=== PATIENT | male | born 1970 | race Caucasian/White ===

== ENCOUNTER 2020-06-02 08:32 | Inpatient (IN) ==
--- NOTE | 2020-05-19 16:00 | PAT Medication Instructions ---
Medication Instructions Date of Service May 19, 2020 Home Medications loratadine [Claritin] 10 mg PO QAM naproxen 500 mg PO BID PRN ASK your surgeon for instructions Naproxen 500 mg PO BID PRN DO NOT take the morning of surgery loratadine [Claritin] 10 mg PO QAM Other Notes If you have any questions please call us at [phone] or [phone] or [phone] or [phone]
--- NOTE | 2020-05-20 12:34 | Anesthesiology Consultation ---
Date of Service May 20, 2020 Assessment & Plan (1) Encounter for pre-operative examination: COVID Status: As of 05/20 assessment, patient denies travel to endemic area, known exposure/sick contacts, or symptoms of COVID19. Patient instructed that they and their household members must follow strict social distancing guidelines, wear a mask in public and avoid travel for 14 days prior to surgery. Preoperative COVID19 testing to be completed prior to surgery per surgeon's a rrangements. Patient made aware to self-isolate as much as possible between COVID testing and surgery. Chart Review Chart Review: Acceptable Risk for Surgery (pending surgeon ordered PCP clearance) and Patient seen in Pre Admission Testing Teaching & Discussion Instructed NPO after midnight before surgery, except medications with 15 cc of water. Medication instructions provided according to the PAT guidelines. History Surgery Operation Date: 06/02/20 07:45 Proposed Procedures p L4-S1 Decompression and Fusion; Spinal Cord Monitoring - Allen Tejeda, Height/Weight Height: 6 ft 1 in Weight: 97.7 kg Allergies Allergy/AdvReac Type Severity Reaction Status Date / Time No Known Allergies Allergy Verified 05/14/20 10:45 Medications Home Medications Medication Instructions Recorded Confirmed Last Taken loratadine [Claritin] 10 mg PO QAM 05/14/20 05/14/20 Unknown naproxen 500 mg PO BID PRN 05/14/20 05/14/20 Unknown Past Medical History Medical History Osteoarthritis Seasonal allergies Spinal stenosis Exercise / Class Metabolic Activity II 4-5 Yardwork/Stairs/Walk up hill Past Family History Family History (Updated 05/14/20 @ 10:49 by Alicia Easley RN) Other No significant family history Past Surgical History Surgical History History of arthroscopy LEFT KNEE X 2 History of lumbar discectomy History of nasal septoplasty History of tooth extraction Past Anesthesia History No Hx of Anesthesia Complications and No Family Hx of Anesthesia Complications History of PONV No Hx of PONV and Hx of Motion Sickness (due to vertigo, if quick motion) Social History Smoking Status: Former smoker tobacco type: cigarettes Smoking cigarettes per day: "CASUAL SMOKER" Do You Dip or Chew Tobacco: No Hx Alcohol Use: No Hx Substance Use: No substance use type: does not use Review of Systems Pt denies any recent chest pain, shortness of breath, palpitations, cough, fever, URI, or uncontrolled acid reflux. Physical Exam Vital Signs BP: 146/106 -- pt was asked to monitor at home by PCP to r/o white coat HTN and he reports was usually normal at home (120s/80s), stopped monitoring a few months ago. Rpt manual cuff 10 mins later 140/100. P: 77bpm SPO2: 98% RA T: 97.9 F R: 16 ENMT Mouth: no dental restorations, no chipped teeth and no loose teeth Thyromental Distance: > or= 3.5 Finger Breadths Mallampati Class: II Neck normal visual inspection and + facial hair; neck extension not limited Respiratory normal respiratory effort Auscultation: lungs clear to auscultation bilaterally Cardiovascular Rate/Rhythm: regular rate and regular rhythm Heart Sounds: no murmur Extremities: no edema Testing Laboratory Results 05/20/20 12:21 05/20/20 12:21 PT 10.5 Seconds (9.0-12.0) 05/20/20 12:21 INR 1.0 (0.9-1.1) 05/20/20 12:21 APTT 28.8 Seconds (21.0-31.0) 05/20/20 12:21 Urine Color Yellow 05/20/20 12:21 Urine Appearance Clear (Clear) 05/20/20 12:21 Urine pH 7.5 (4.5-7.5) 05/20/20 12:21 Ur Specific Damon 1.022 (1.000-1.030) 05/20/20 12:21 Urine Protein Negative (Negative) 05/20/20 12:21 Urine Glucose (UA) Negative (Negative) 05/20/20 12:21 Urine Ketones Negative (Negative) 05/20/20 12:21 Urine Nitrite Negative (Negative) 05/20/20 12:21 Ur Leukocyte Esterase Negative (Negative) 05/20/20 12:21 Blood Type O Positive 05/20/20 12:21 Antibody Screen NEGATIVE 05/20/20 12:21 Electrocardiogram Date: 05/20/20 Findings: + NSR @ (69bpm) Chest X-Ray Date: 05/20/20 Findings: + NAD
[2020-05-20 13:11] LABS: Basophils # (auto) 0.05 K/uL (0-0.2); Basophils % (auto) 0.6 %; Eosinophils # (auto) 0.41 K/uL (0-0.5); Eosinophils % (auto) 5.1 %; Hematocrit (blood only) 46.7 % (42-52); Hemoglobin 15.8 g/dL (14.0-18.0); Immature Granulocytes # (auto) 0.03 K/uL (0.00-0.02); Immature Granulocytes % (auto) 0.4 %; Lymphocytes # (auto) 1.66 K/uL (1.2-3.4); Lymphocytes % (auto) 20.5 %; Mean Corpuscular Hemoglobin 30.5 pg (25-34); Mean Corpuscular Hgb Conc 33.8 g/dL (32-36); Mean Corpuscular Volume 90.2 fL (80-100); Mean Platelet Volume 10.9 fL (7.4-10.4); Monocytes # (auto) 0.92 K/uL (0.11-0.59); Monocytes % (auto) 11.4 %; Neutrophils # (auto) 5.03 K/uL (1.4-6.5); Platelet Count 212 K/uL (130-400); RDW Coefficient of Variation 12.6 % (11.5-14.5); RDW Standard Deviation 41.5 fL (36.4-46.3); Red Blood Count 5.18 M/uL (4.7-6.1)
[2020-05-20 13:23] LABS: Appearance Urine Clear (Clear); Bilirubin Urine Negative (Negative); Blood Urine Negative (Negative); Color Urine Yellow; Glucose Urine UA Negative (Negative); Ketones Urine Negative (Negative); Leukocyte Esterase Urine Negative (Negative); Nitrite Urine Negative (Negative); Partial Thromboplastin Time 28.8 Seconds (21.0-31.0); Protein Urine Negative (Negative); Prothrombin Time 10.5 Seconds (9.0-12.0); Specific Gravity Urine 1.022 (1.000-1.030); Urobilinogen Urine Negative (Negative); pH Urine 7.5 (4.5-7.5)
[2020-05-20 13:26] LABS: Calcium 9.3 mg/dl (8.5-10.1); Creatinine Clr Calc Pharmacy 113.5 ml/min; Est GFR (African American) 105.2; Est GFR (Non-African American) 90.8; Potassium 4.2 mmol/L (3.5-5.1)
--- NOTE | 2020-05-20 13:43 | XRay Report ---
TWO VIEW CHEST CLINICAL HISTORY: Preoperative examination. FINDINGS: PA and lateral chest radiographs are obtained. No prior studies are available for compariso n at the time of dictation. The cardiomediastinal silhouette is unremarkable. The lungs and pleural spaces are clear. There is no pneumothorax. The bony thorax appears intact. Mild degenerative change and scoliosis is noted in the thoracic spine. IMPRESSION: No active disease in the chest. ACT 112: Negative or not required by law. Electronically signed by: Ty Snider M.D. 05/20/2020 1:42 PM
--- NOTE | 2020-05-21 06:05 | Electrocardiogram Report ---
Test Reason : Blood Pressure : / mmHG Vent. Rate : 069 BPM Atrial Rate : 069 BPM P-R Int : 152 ms QRS Dur : 100 ms QT Int : 390 ms P-R-T Axes : 070 056 062 degrees QTc Int : 417 ms Normal sinus rhythm Normal ECG No previous ECGs available Confirmed by Elias Zhu ([id number]) on 05/21/2020 6:05:29 AM Referred By: Allen Tejeda Confirmed By:Elias Zhu
[~2020-06-02 08:32] MED LIST: ACETAMINOPHEN 500 MG TAB PO SCH; CeleBREX 200 MG CAP PO SCH; GABAPENTIN 900 MG DOSE PO SCH; LR 15ML/HR IV SCH; MIDAZOLAM HCL 1 MG/ML 2ML VIAL ONE; ceFAZolin 2000MG 2,000 MG/15 ML SYR IV SCH; fentaNYL citrate 100 MCG/2 ML VIAL ONE
--- NOTE | 2020-06-02 09:14 | History & Physical Bridge Note ---
Date of Service June 02, 2020 History & Physical Bridge Note I have examined the patient, reviewed the History & Physical and in the interval since the performance of the History & Physical I have noted the following changes of clinical significance: no changes noted
--- NOTE | 2020-06-02 09:14 | History & Physical Report ---
Date of Service June 02, 2020 Assessment & Plan (1) Neurogenic claudication due to lumbar spinal stenosis: Admission and Anticipated Discharge Date Admission Date: L4-S1 decompression fusion History of Present Illness Chief Complaint: Back and leg pain Primary Care Provider: Black Ramos This is a 50-year-old male who presents with chronic persistent back and leg pain. After failing a course of nonoperative care is here for surgical invention. Allergies Allergy/AdvReac Type Severity Reaction Status Date / Time No Known Allergies Allergy Verified 06/02/20 09:10 Home Medications Home Medications Medication Instructions Recorded Confirmed Type loratadine [Claritin] 10 mg PO QAM 05/14/20 06/02/20 History naproxen 500 mg PO BID PRN 05/14/20 06/02/20 History Past Med/Surg History Medical History Osteoarthritis Seasonal allergies Spinal stenosis Surgical History History of arthroscopy LEFT KNEE X 2 History of lumbar discectomy History of nasal septoplasty History of tooth extraction Family History (Updated 05/14/20 @ 10:49 by Alicia Easley RN) Other No significant family history Social History Smoking Status: Former smoker Cigarettes Per Day: "CASUAL SMOKER"; Second Hand Exposure: No; Do You Dip or Chew Tobacco: No; Tobacco Cessation Education Requested by Patient: No Hx Alcohol Use: No Hx Substance Use: No Preferred Language: Kazakh Hot Tamale Man Required: No Beliefs That Will Affect Care: None Current Living Situation: Spouse Feels Safe at Home: Yes Safety Concerns: Feels Safe At This Time Assistive Devices: None Physical Exam Physical Exam: Patient is alert and oriented neurologically intact Heart regular rate and rhythm Lungs clear to auscultation
[2020-06-02] MEDS ORDERED: BACITRACIN INJ 50,000 UNIT VIAL ONE (09:25)
[2020-06-02] MEDS ORDERED: BUPIVACAINE/EPINEPHRINE 0.25% 1:200,000 30 ML VIAL ONE (09:26)
[2020-06-02] MEDS ORDERED: ATROPINE SULFATE 0.1 MG/ML 10ML SYR IV PRN (09:43)
[2020-06-02] MEDS ORDERED: ONDANSETRON INJ 2 MG/ML 2 ML VIAL IV PRN ×2 (09:43→13:24)
[2020-06-02] MEDS ORDERED: PROMETHAZINE HCL 6.25 MG in SODIUM CHLORIDE 0.9% 50 ML IV PRN (09:43)
[2020-06-02] MEDS ORDERED: HYDROmorphone INJ 2 MG/ML SYR/VIAL IV PRN (09:43)
[2020-06-02] MEDS ORDERED: ePHEDrine sulfate 50 MG/ML AMP IV PRN (09:43)
[2020-06-02] MEDS ORDERED: HYDROmorphone INJ 2 MG/ML SYR/VIAL ONE (10:09)
[2020-06-02] MEDS ORDERED: NEOSTIGMINE METHYLSULFATE 1 MG/ML 10ML VIAL ONE (10:14)
[2020-06-02] MEDS ORDERED: PROPOFOL IV EMULSION 10 MG/ML 20 ML VIAL IV ONE (10:14)
[2020-06-02] MEDS ORDERED: GLYCOPYRROLATE 0.2 MG/ML VIAL ONE (10:14)
[2020-06-02] MEDS ORDERED: ONDANSETRON INJ 2 MG/ML 2 ML VIAL ONE (10:14)
[2020-06-02] MEDS ORDERED: LARYING-O-JET KIT (LTA) ONE (10:14)
[2020-06-02] MEDS ORDERED: DEXAMETHASONE SOD INJ 4 MG/ML VIAL ONE (10:14)
[2020-06-02] MEDS ORDERED: LIDOCAINE HCL 2% 2 ML VIAL/AMP(20MG/ML) INFIL ONE (10:14)
[2020-06-02] MEDS ORDERED: FLOSEAL HEMOSTATIC MATRIX 10ML TOP ONE (10:53)
[2020-06-02] MEDS ORDERED: ROCURONIUM BROMIDE 10 MG/ML 5 ML VIAL IV ONE (11:24)
--- NOTE | 2020-06-02 12:06 | Operative Report ---
Post Operative Report Pre & Post Diagnosis Operation Date: 06/02/20 10:05 Pre-Op Diagnosis: Spinal Stenosis, Lumbar Region with Neurogenic Claudication Post-Op Diagnosis: Spinal Stenosis, Lumbar Region with Neurogenic Claudication I identified the patient and participated in the time-out.: Yes Procedure Operation Date: 06/02/20 10:05 Actual Procedures #1 fusion decompression with bilateral medial facetectomy and foraminotomies L3- 4, L4-5 and L5-S1. #2 posterior spinal fusion L4-5 L5-S1. #3 placed a posterior instrumentation L4-5 L5-S1. #4 interbody fusion L4-5 L5-S1. #5 placement of peek cage 12 x 26 mm at L4-5 and 10 x 26 mm at L5-S1. #6 placement locally however similar sized autograft in the posterior lateral gutters. #7 placement views collagen sponge, master graft and posterior gutters and osteoamp in interbody space. Surgeon Allen Tejeda, Flight Deck Officer Arlen Hanks Estimated Blood Loss 200 Findings Consistent with Post-Op Diagnosis Specimens None Indications This is a 50-year-old male who presents with management diagnosis after failing stents course of nonoperative care is here for the above-mentioned procedure. Description of Procedure Patient was met with identified informed consent obtained. Patient was then taken to the operative suite underwent and patient placed in a prone position the Deangelo table atop the Ziyad frame. All bony prominences well-padded eyes inspected to ensure no external pressure placed upon the. This point the lumbar spine was prepped and draped in normal sterile fashion. Sharp dissection with the assistance of Bovie cautery was performed down to and exposing the remaining lamina and transverse processes of L4-L5 and sacral ala bilaterally. From a caudal to cephalad fashion a revision complete laminectomy of L5 L4 partially met medial 3 was performed including bilateral medial facetectomy and foraminot omies addressing severe spinal stenosis. Pedicle screws were then placed in L4- L5 and S1 levels bilaterally with assistance of fluoroscopy and Percocet throughout place. Dilated transforaminal approach on the left complete discectomy of L5-S1 was performed endplates curetted to subcortical bleeding bone and a 10 x 26 mm peek cage filled with bone graft tapped in position. Then proceeded to L4-[address] of a transforaminal approach on the left oblique discectomy was performed endplates curetted to subcortical bleeding bone and a 12 x 26 mm peek cage filled with osteobone graft after position. The rods were then locked into final position bilaterally. The transverse processes of L4-L5 and S1 levels burred to subcortical bleeding bone. Infuse collagen sponge master graft look autograft was placed in the posterior lateral gutters. 15 round DIDIER drain inserted. The incision was then closed with 1 Vicryl in the fascia 2-0 Vicryl subcutaneously and 4-0 Monocryl for final skin closure. Steri-Strips dressings placed. Patient woken taken to PACU stable condition. Please note spinal cord monitoring was utilized at the procedure no changes noted. Last Arlen Hanks was present at the entire surgery and while the patient positioning complex portions of the surgery and final skin closure. I attest to the content of the Intraoperative Record and any orders documented therein. Any exceptions are noted below.
[2020-06-02] MEDS: fentaNYL citrate 100 MCG/2 ML VIAL IV PRN ×2 (12:40→12:45)
--- NOTE | 2020-06-02 12:49 | Fluoroscopy Report ---
FL lumbar spine 2-3V CLINICAL HISTORY: L4-S1 DECOMPRESSION/FUSION/INTERBODY COMPARISON STUDY: None. FLUOROSCOPY TIME: 21 seconds. FLUOROSCOPIC IMAGES: 3 FINDINGS: Fluoroscopy was provided for L4-L5 and L5-S1 discectomies with interbody spacer placement. Posterior decompression is noted. There are bilateral pedicle screws at the L4, L5 and S1 levels with interconnecting rods. Hardware is intact. Linear radiodensities projecting over the canal at the L5- S1 level are postsurgical. IMPRESSION: Fluoroscopy provided during L4-L5 and L5-S1 discectomies with posterior decompression an d bilateral pedicle screw fusion. ACT 112: Negative or not required by law. Electronically signed by: Bolivar Griffin M.D. 06/02/2020 12:47 PM
[2020-06-02] MEDS ORDERED: INFLUENZA ADMINISTRATION CHARGE ONE (13:23)
[2020-06-02] MEDS ORDERED: traMADol HCL 50 MG TABLET PO PRN (13:24)
[2020-06-02] MEDS ORDERED: LORazepam 0.5 MG TAB PO PRN (13:24)
[2020-06-02] MEDS ORDERED: HYDROmorphone INJ 1 MG/ML SYRINGE IV PRN (13:24)
[2020-06-02] MEDS ORDERED: PROMETHAZINE HCL 12.5 MG in SODIUM CHLORIDE 0.9% 50 ML IV PRN (13:24)
[2020-06-02] MEDS ORDERED: DO NOT ADMINISTER FLU VACCINE PRN (13:24)
[2020-06-02] MEDS ORDERED: LORazepam 0.5 MG/1 ML VIAL IV PRN (13:24)
[2020-06-02] MEDS ORDERED: ONDANSETRON 4 MG OD TAB PO PRN (13:24)
[2020-06-02] MEDS ORDERED: SOD PHOSPHATE/SOD BIPHOSPHATE ENEMA 132 ML BTL PR PRN (13:24)
[2020-06-02] MEDS ORDERED: NALOXONE HCL 0.4 MG/1 ML VIAL/CARP IV PRN (13:24)
[2020-06-02] MEDS ORDERED: bisacodyL 10 MG SUPP PR PRN (13:24)
[2020-06-02] MEDS ORDERED: DO NOT ADMINISTER PNEUMOCOCCAL VACCINE PRN (13:24)
[2020-06-02] MEDS ORDERED: HYDROmorphone INJ 0.5 MG/0.5 ML SYR IV PRN (13:24)
[2020-06-02] MEDS ORDERED: MAGNESIUM HYDROXIDE SUSP 30 ML UDC PO PRN (13:24)
[2020-06-02] MEDS ORDERED: ACETAMINOPHEN 1,000 MG/100 ML VIAL IV PRN (13:24)
[2020-06-02] MEDS ORDERED: hydrOXYzine HCl 25 MG TAB PO PRN (13:24)
[2020-06-02] MEDS ORDERED: diphenhydrAMINE Capsule 25 MG CAP PO PRN (13:24)
[2020-06-02] MEDS ORDERED: METOCLOPRAMIDE HCL INJ 5 MG/ML 2 ML VIAL IV PRN (13:24)
[2020-06-02] MEDS ORDERED: FAMOTIDINE 20 MG TAB PO PRN (13:24)
[2020-06-02] MEDS ORDERED: ACETAMINOPHEN 500 MG TAB PO PRN (13:24)
--- NOTE | 2020-06-02 13:44 | Anesthesiology Progress Note ---
Date of Service June 02, 2020 Anesthesia Post Procedure Vital Signs Vital Signs: Temp Pulse Pulse Resp BP BP Pulse Ox 06/02/20 13:17 36.6 C 97 H 18 147/85 H 98 06/02/20 13:05 36.4 C L 93 H 14 133/85 98 06/02/20 12:55 87 21 130/78 97 06/02/20 12:45 88 12 133/83 97 06/02/20 12:35 89 16 136/84 100 06/02/20 12:28 36.4 C L 90 16 138/74 99 06/02/20 09:23 36.7 C 81 16 161/110 H 98 Pain Intensity Lower Back: Pain Intensity: 2 Transfer of Care Handoff Completed per policy Notes Mental Status: alert / awake / arousable Patient Amnestic to Procedure: Yes Nausea / Vomiting: adequately controlled Pain: adequately controlled Airway Patency, RR, SpO2: stable & adequate BP & HR: stable & adequate Hydration State: stable & adequate Anesthetic Complications: no major complications apparent
[2020-06-02] MEDS: KETOROLAC 30 MG/ML VIAL IV SCH ×2 (14:13→20:11)
[2020-06-02] MEDS: LACTATED RINGER'S 1,000 ML IV SCH ×2 (14:14→20:58)
[2020-06-02] MEDS: ceFAZolin 2000MG 2,000 MG/15 ML SYR IV SCH (17:42)
[2020-06-02] MEDS ORDERED: COUGH DROP (SUGAR FREE) LOZ 24 LOZ/1 BOX BUCCAL ONE (19:27)
[2020-06-02] MEDS: DOCUSATE SODIUM/SENNA 50/8.6MG TAB PO SCH (21:14)
[2020-06-03] MEDS: KETOROLAC 30 MG/ML VIAL IV SCH ×2 (02:09→07:51)
[2020-06-03] MEDS: ceFAZolin 2000MG 2,000 MG/15 ML SYR IV SCH (02:09)
[2020-06-03] MEDS: LACTATED RINGER'S 1,000 ML IV SCH (04:34)
[2020-06-03 06:25] LABS: Basophils # (auto) 0.01 K/uL (0-0.2); Basophils % (auto) 0.1 %; Hemoglobin 13.2 g/dL (14.0-18.0); Immature Granulocytes # (auto) 0.03 K/uL (0.00-0.02); Immature Granulocytes % (auto) 0.2 %; Lymphocytes # (auto) 1.16 K/uL (1.2-3.4); Lymphocytes % (auto) 6.7 %; Mean Corpuscular Hemoglobin 29.4 pg (25-34); Mean Corpuscular Hgb Conc 32.2 g/dL (32-36); Mean Corpuscular Volume 91.3 fL (80-100); Mean Platelet Volume 11.3 fL (7.4-10.4); Neutrophils # (auto) 15.42 K/uL (1.4-6.5); Platelet Count 200 K/uL (130-400); RDW Coefficient of Variation 12.4 % (11.5-14.5); RDW Standard Deviation 41.8 fL (36.4-46.3); Red Blood Count 4.49 M/uL (4.7-6.1); White Blood Count 17.32 K/uL (4.8-10.8)
[2020-06-03 06:54] LABS: BUN Creatinine Ratio 16.8 (10-20); Calcium 8.7 mg/dl (8.5-10.1); Creatinine Clr Calc Pharmacy 108.2 ml/min; Est GFR (African American) 99.1; Est GFR (Non-African American) 85.5; Potassium 4.4 mmol/L (3.5-5.1)
[2020-06-03] MEDS: POLYETHYLENE (MIRALAX) 17 GM PACK PO SCH ×3 (07:51→17:14)
[2020-06-03] MEDS: LORATADINE 10 MG TAB PO SCH (07:51)
--- NOTE | 2020-06-03 08:55 | Orthopedic Progress Note ---
Date of Service June 03, 2020 Assessment & Plan (1) Neurogenic claudication due to lumbar spinal stenosis: Admission and Anticipated Discharge Date Admission Date: June 02, 2020 Today when initiate physical therapy monitor DIDIER output anticipate discharge home tomorrow. Subjective Back pain controlled leg symptoms improved. Physical Exam Physical Exam: Patient is comfortable with good strength testing. Results & Data ([facility]) Vital Signs (Past 12 Hours) Vital Signs Temp Pulse Resp BP Pulse Ox 06/03/20 07:48 36.5 C 73 16 105/66 97 06/03/20 03:35 36.5 C 59 L 16 119/67 97 06/02/20 22:46 36.4 C L 71 16 122/70 97
[2020-06-03] MEDS: oxyCODONE HCL IR 5 MG TAB (IMMEDIATE RELEASE) PO PRN ×4 (11:28→21:58)
[2020-06-03] MEDS: DOCUSATE SODIUM/SENNA 50/8.6MG TAB PO SCH (21:58)
[2020-06-04] MEDS: POLYETHYLENE (MIRALAX) 17 GM PACK PO SCH ×3 (00:17→11:47)
[2020-06-04] MEDS: ALUMINUM/MAGNESIUM SUSP 30 ML UDC PO PRN ×2 (01:12→12:41)
[2020-06-04] MEDS: oxyCODONE HCL IR 5 MG TAB (IMMEDIATE RELEASE) PO PRN ×2 (03:55→12:39)
[2020-06-04] MEDS: LORATADINE 10 MG TAB PO SCH (07:41)
--- NOTE | 2020-06-04 11:38 | Discharge Summary ---
Date of Service June 04, 2020 Admission HPI Per Admitting Provider This is a 50-year-old male who presents with chronic persistent back and leg pain. After failing a course of nonoperative care is here for surgical invention. Principal Diagnosis Lumbar spinal stenosis with neurogenic claudication Discharge Data Allergies Allergy/AdvReac Type Severity Reaction Status Date / Time No Known Allergies Allergy Verified 06/02/20 09:10 Consultations 06/02/20 13:24 Consult Case Management - Discharge Planning Routine Procedures Performed Operation Date: 06/02/20 10:05 Actual Procedures p L4-S1 Decompression and Fusion; application of Infuse, Spinal Cord Monitoring(Not Applicable) - Allen Tejeda, Ordered Studies 06/02/20 10:05 FL fluoroscopy <1hr Routine FL lumbar spine 2-3V Routine Hospital Course (1) Neurogenic claudication due to lumbar spinal stenosis: Patient underwent lumbar depression fusion tolerated as well as taken to the orthopedic floor postoperatively postop day 1 he was up and ambulating. Postop day #2 DIDIER drain decreasing appropriate. Pain well controlled. Excellent strength testing. Subsequent discharge home. Discharge orders and instructions from the chart for further review. Total Time Total Time Spent Total Time Spent (In Minutes): 20 minutes Discharge Plan Discharge Items Patient Disposition: Home - Home Health Services Reason For Visit: Spinal Stenosis, Lumbar Region with Neurogenic Cla Discharge Diagnosis: Lumbar spinal stenosis with neurogenic claudication Activity: As commented below Non-emergency contact: Primary Care Provider Call non-emergency contact if: you have any medication questions Follow-up/Referrals: Black Ramos [Primary Care Provider] - Diet: Regular Addtl Attending Provider Instructions: ACTIVITY RECOMMENDATIONS: SELF CARE INSTRUCTIONS AFTER THORACIC/LUMBAR FUSIONS 1. You may walk to your tolerance. It is good exercise for your legs and back. Expect some back and intermittent leg aches and pains. 2. You may perform "counter-top" level activities (make a sandwich, yasmine with a project, etc.). 3. No bending or lifting of more than 10 pounds or back twisting of any nature (roll like a log when turning in bed). 4. You may ride in a car for 20-30 minutes at a time. No driving until after your first visit with your doctor. 5. Frequent changes of position and restricting sitting to 30 minutes at a time will help limit the amount of back spasms and stiffness you may experience. 6. You may discontinue the use of ambulatory aids (cane, crutches, etc.) once your strength and confidence allow. 7. You may operations management trainee the shower and let water strike your incision when you arrive home at least once daily. Do not take a tub bath, sit in a hot tub or go into a swimming pool until after your first recheck in the office. SPECIAL CARE INSTRUCTIONS: VERY IMPORTANT TO READ AND REVIEW A. Your surgical incision has been closed with a cosmetic suture under the skin that will dissolve in about 6 weeks. In 14 days, you can use a pair of clean scissors and cut the suture that is left outside of the skin at the ends of your incision. 1. The small skin tapes can be removed 7 days after surgery if they have not fallen off by that point. 2. You may keep the wound open to air as much as possible to promote healing after post-op day number 5 unless told otherwise by your doctor. 3. If you think the wound looks like it is becoming infected (redness or worsening drainage) and/or you are experiencing fever, chill or worsening back pain and muscle spasms, contact the office so that we may evaluate you as soon as possible. B. Complications are uncommon, but please contact us if you have any signs or symptoms of: 1. wound infection (fever higher than 102.5 degrees F, redness, separation of wound, drainage, or increasing pain from the incision) 2. blood clots in legs (pain, swelling, redness and warmth in legs) 3. urinary tract infection (fever higher than 102.5 degrees F, burning upon urination or increased frequency of urination) 4. nerve problems (inability to walk on your toes or heels, numbness, loss of bowel or bladder control) 5. any other symptoms that concern you C. Please call the office at if you have any concerns or questions about your operation or recovery. D. No smoking! Smoking drastically decreases the chance of a solid fusion. E. Do not take any anti-inflammatory medications (Indocin, Advil, Motrin, Aspirin, Naprosyn, etc.) as these may inhibit the chance of a solid fusion. Tylenol is okay to take for pain. MANAGING PAIN AFTER SPINAL SURGERY 1. Narcotic medication is intended for short-term use and will be provided for surgical pain. Surgical pain usually lasts for a period of 4-6 weeks. Narcotic medication includes Percocet, Vicodin, Darvocet, Tylenol #3 or Lortab. 2. Longer-term pain is more appropriately treated with non-narcotic medication such as Tylenol ES. 3. Muscle spasm is not appropriately treated with narcotics. Muscle relaxers such as Soma, Flexeril or Skelaxin can be used along with Tylenol ES. 4. Remember that we all live with some "aches and pains". This is not unusual or uncommon after an injury or as we get older. a. Back pain is expected and may include muscle spasms for 4 to 6 weeks after surgery. The pain should gradually improve. If the pain worsens for no apparent reason, please contact the office. b. Intermittent leg pain may also be experienced and should not be concerned about unless it worsens for no apparent reason. If so, please contact the office. 5. We will provide appropriate medication within the normal guidelines of their prescribed use. We will also be very cautious and aware of potential abuse and extended duration of patients' medication needs. a. Pain medications are for your comfort and to assist with sleep and rest so that the tissue can heal. They are not provided in order to return to normal activity and should not be used through the day. To do so or worsening pain at night can result from ongoing tissue damage and development of tolerance to the prescribed medicine. 6. Please allow 2-3 days to process refills. Prescriptions will not be mailed but must be picked up at the office. FOLLOW UP VISIT: Keep your scheduled follow-up appointment. Any questions, please call the office at . Pending Studies at Discharge: No Stand-Alone Forms: [facility] [employer], Smoking Cessation Medications and DC Order Prescriptions: New oxycodone 5 mg tablet 5 mg PO Q6H PRN (Reason: pain, severe) Qty: 30 RF: 0 tramadol 50 mg tablet 50 mg PO Q6H PRN (Reason: pain, moderate) Qty: 30 RF: 0 Continued loratadine [Claritin] 10 mg Tablet 10 mg PO QAM RF: 0 Discontinued naproxen 500 mg Tablet 500 mg PO BID PRN (Reason: Pain) RF: 0 Discharge Orders: Discharge Order (Routine); Ordered 06/04/20 Ordered By: Allen Tejeda Admission Data Admit Date/Time: 06/02/20 12:32 Attending Provider: Allen Tejeda Admit Provider: Allen Tejeda Primary Care Provider: Black Ramos
[2020-06-09] MEDS ORDERED: INFLUENZA VIRUS QUAD VACCINE 0.5 ML SYR IM ONE (13:23)
== END 2020-06-04 14:27 | disposition home or self-care (01) | DRG 455 ==
LOC: ASU 08:32 → 3E 12:32